=== PATIENT | female | born 1935 | race Caucasian/White ===

== ENCOUNTER 2019-08-08 12:06 | Inpatient (IN) ==
[2019-08-08] MEDS ORDERED: SODIUM CHLORIDE 0.9% 500 ML IV STA (12:57)
[2019-08-08 13:50] LABS: Apearance,Urine CLEAR (Clear); Bacteria,Urine Occasional /HPF (Few); Bilirubin,Urine Negative (Negative); Blood, Urine Negative (Negative); Glucose,Urine (UA) Negative (Negative); Ketones,Urine Negative (Negative); Nitrite,Urine Negative (Negative); Protein,Urine Negative; RBC,Urine 1 /HPF (0-4); Squamous Epithelial Cell,Urine Occasional /HPF (0-10); Urine Color Yellow (Yellow); Urine Specific Gravity 1.011 (1.001-1.035); Urine Urobilinogen < 2.0 EU/DL (0.2-1.0); WBC,Urine <1 /HPF (0-6)
[2019-08-08] MEDS ORDERED: guaiFENesin/DM ER 600-30 MG TABLET PO PRN (14:06)
[2019-08-08] MEDS ORDERED: ONDANSETRON 4 MG/2 ML VIAL IV PRN (14:06)
[2019-08-08 14:28] LABS: Basophils % 0.9 % (0.0-0.8); Eosinophils % 0.3 % (0.00-10.9); Hemoglobin 12.6 GM/DL (12.0-16.0); Immature Granulocytes % 0.3 %; Immature Granulocytes Absolute 0.01 #; Lymphocytes % 30.5 % (21.3-54.2); Mean Corpuscular Volume 82.9 FL (87-102); Mean Platelet Volume 10.8 FL (9.6-12.0); Monocytes % 15.1 % (1.7-12.7); Neutrophils % 52.9 % (38.7-73.9); Platelet Count 223 T/CUMM (130-400); Red Blood Count 4.34 MC/CUMM (3.8-5.5); Red Cell Distribution Width 12.4 % (9.3-17.3); White Blood Count 3.3 T/CUMM (4-12)
[2019-08-08 14:45] LABS: Alanine Aminotransferase 21 U/L (13-56); Albumin 3.5 G/DL (3.4-5.0); Alkaline Phosphatase 73 U/L (45-117); Aspartate Amino Transferase 30 U/L (0-37); Bilirubin,Total < 0.39 MG/DL (0.2-1.0); Blood Urea Nitrogen 8 MG/DL (7-18); Calcium 8.1 MG/DL (8.5-10.1); Estimated Glom Filtration Rate 59 ML/MIN; Glucose 104 MG/DL (74-106); Osmolality,Calculated 237.3 MOS/KG (273-304); Total Protein 7.6 G/DL (6.4-8.3)
[2019-08-08] MEDS ORDERED: ENOXAPARIN 40 MG/0.4 ML SYRINGE SUBCUT SCH (15:00)
[2019-08-08] MEDS: SODIUM CHLORIDE 0.9% 1,000 ML IV SCH ×2 (16:40→23:28)
[2019-08-09 05:38] LABS: Basophils % 1.1 % (0.0-0.8); Eosinophils % 1.1 % (0.00-10.9); Hemoglobin 11.6 GM/DL (12.0-16.0); Immature Granulocytes % 0.3 %; Immature Granulocytes Absolute 0.01 #; Lymphocytes # 1.8 10*3/uL (1.4-4.0); Lymphocytes % 48.8 % (21.3-54.2); Mean Corpuscular HGB Conc 34.1 GM/DL (32-36); Mean Corpuscular Volume 84.4 FL (87-102); Mean Platelet Volume 10.4 FL (9.6-12.0); Monocytes % 16.1 % (1.7-12.7); Neutrophils % 32.6 % (38.7-73.9); Platelet Count 188 T/CUMM (130-400); Red Blood Count 4.03 MC/CUMM (3.8-5.5); Red Cell Distribution Width 12.5 % (9.3-17.3); White Blood Count 3.7 T/CUMM (4-12)
[2019-08-09 05:56] LABS: Alanine Aminotransferase 19 U/L (13-56); Albumin 3.1 G/DL (3.4-5.0); Alkaline Phosphatase 66 U/L (45-117); Aspartate Amino Transferase 30 U/L (0-37); Bilirubin,Total < 0.39 MG/DL (0.2-1.0); Blood Urea Nitrogen 8 MG/DL (7-18); Calcium 7.8 MG/DL (8.5-10.1); Estimated Glom Filtration Rate 60 ML/MIN; Glucose 80 MG/DL (74-106); HDL Cholesterol 34 MG/DL (40-60); Osmolality,Calculated 256.8 MOS/KG (273-304); Risk Ratio 5.15; Total Protein 6.5 G/DL (6.4-8.3); Triglycerides 165 MG/DL (2-150)
[2019-08-09 06:07] LABS: Lymphocytes 45 % (20-55); Segmented Neutrophils 43 % (50-85); Total Cells Counted 100
[2019-08-09 06:09] LABS: Platelet Estimate Increased; Polychromasia Slight
[2019-08-09] MEDS: SODIUM CHLORIDE 0.9% 1,000 ML IV SCH (07:54)
[2019-08-09] MEDS ORDERED: SERTRALINE 25 MG TABLET PO SCH (09:00)
[2019-08-09] MEDS ORDERED: lisinopriL 20 MG TABLET PO SCH (09:00)
[2019-08-09] MEDS ORDERED: POTASSIUM CHLORIDE 20 MEQ TABLET PO SCH (09:00)
[2019-08-09] MEDS ORDERED: PANTOPRAZOLE 40 MG TABLET PO SCH (09:00)
[2019-08-09] MEDS ORDERED: METOPROLOL TARTRATE 100 MG TABLET PO SCH (09:00)
[2019-08-09 12:30] VITALS: BP 153/65
[2019-08-10] MEDS ORDERED: POTASSIUM CHLORIDE 20 MEQ TABLET PO SCH (09:00)
== END 2019-08-09 15:30 | disposition home or self-care (01) | DRG 641 ==
LOC: N.ED 12:06 → SUATTDRO 14:07 → N.EDINP 14:07 → N.5E 15:50
PROVIDERS: ADMIT Internal Medicine Nephrology; ATTEND Internal Medicine

== ENCOUNTER 2019-10-09 17:05 | Inpatient (IN) ==
[2019-10-09] MEDS ORDERED: METOPROLOL TARTRATE 5 MG/5 ML VIAL IV STA (17:35)
[2019-10-09] MEDS ORDERED: ASPIRIN CHEW 81 MG TABLET PO STA (17:36)
[2019-10-09 17:42] LABS: Basophils # 0.1 10*3/uL (0.0-0.2); Basophils % 0.7 % (0.0-0.8); Eosinophils # 0.2 10*3/uL (0.0-0.87); Eosinophils % 1.9 % (0.00-10.9); Hematocrit 38.6 VOL% (35.7-47.0); Hemoglobin 12.4 GM/DL (12.0-16.0); Immature Granulocytes % 0.3 %; Immature Granulocytes Absolute 0.03 #; Lymphocytes # 3.1 10*3/uL (1.4-4.0); Lymphocytes % 28.2 % (21.3-54.2); Mean Corpuscular HGB Conc 32.1 GM/DL (32-36); Mean Corpuscular Volume 89.4 FL (87-102); Mean Platelet Volume 10.5 FL (9.6-12.0); Monocytes % 7.4 % (1.7-12.7); Neutrophils % 61.5 % (38.7-73.9); Platelet Count 250 T/CUMM (130-400); Red Blood Count 4.32 MC/CUMM (3.8-5.5)
[2019-10-09 17:52] LABS: INR 0.9; Partial Thromboplastin Time 29.2 SECS (20.8-36.0)
[2019-10-09 18:20] LABS: Alanine Aminotransferase 17 U/L (13-56); Albumin 3.8 G/DL (3.4-5.0); Alkaline Phosphatase 93 U/L (45-117); Aspartate Amino Transferase 13 U/L (0-37); Blood Urea Nitrogen 12 MG/DL (7-18); Calcium 9.2 MG/DL (8.5-10.1); Estimated Glom Filtration Rate 58 ML/MIN; Glucose 148 MG/DL (74-106); Troponin I < 0.015 NG/ML (0.00-0.045)
[2019-10-09] MEDS ORDERED: LABETALOL 20 MG/4 ML SYRINGE IV PRN (19:26)
[2019-10-09] MEDS ORDERED: ONDANSETRON 4 MG/2 ML VIAL IV PRN (19:26)
[2019-10-09] MEDS ORDERED: ACETAMINOPHEN 325 MG TABLET PO PRN (19:26)
[2019-10-09] MEDS ORDERED: HEPARIN DRIP 25,000 UNITS/500 ML PREMIX IV SCH (19:30)
[2019-10-09] MEDS ORDERED: SODIUM CHLORIDE 0.9% 1,000 ML IV SCH (19:30)
[2019-10-09] MEDS ORDERED: FLUTICASONE 50 MCG NASAL SPRAY 16 GM BOTTLE BOTH NARES PRN (19:37)
[2019-10-09] MEDS ORDERED: BUDESONIDE/FORMOTEROL 160-4.5 INHALER 6 GM INH PRN (19:37)
[2019-10-09 20:01] LABS: Risk Ratio 5.68; VLDL CHOLESTEROL 95.6 MG/DL
[2019-10-09] MEDS: SODIUM CHLORIDE 0.9% 1,000 ML IV SCH (22:32)
[2019-10-09] MEDS: SERTRALINE 25 MG TABLET PO SCH (22:33)
[2019-10-09] MEDS: lisinopriL 20 MG TABLET PO SCH (22:33)
[2019-10-09] MEDS: MEMANTINE 5 MG TABLET PO SCH (22:33)
[2019-10-09] MEDS: ROSUVASTATIN 20 MG TABLET PO SCH (22:33)
[2019-10-09] MEDS: PANTOPRAZOLE 40 MG TABLET PO SCH (22:33)
[2019-10-10 01:26] LABS: Barbiturates Screen,Urine Negative (Negative); Benzodiazepines Screen,Urine Negative (Negative); Cannabinoid Screen,Urine Negative (Negative); Opiate Screen,Urine Negative (Negative); Phencyclidine Screen,Urine Negative (Negative)
[2019-10-10 01:41] LABS: Basophils # 0.1 10*3/uL (0.0-0.2); Basophils % 0.7 % (0.0-0.8); Calcium 8.8 MG/DL (8.5-10.1); Eosinophils # 0.2 10*3/uL (0.0-0.87); Eosinophils % 1.5 % (0.00-10.9); Hematocrit 33.5 VOL% (35.7-47.0); Hemoglobin 10.8 GM/DL (12.0-16.0); Immature Granulocytes % 0.3 %; Immature Granulocytes Absolute 0.04 #; Lymphocytes # 3.7 10*3/uL (1.4-4.0); Lymphocytes % 32.1 % (21.3-54.2); Mean Corpuscular HGB Conc 32.2 GM/DL (32-36); Mean Corpuscular Volume 89.6 FL (87-102); Monocytes % 7.5 % (1.7-12.7); Neutrophils % 57.9 % (38.7-73.9); Platelet Count 218 T/CUMM (130-400); Red Blood Count 3.74 MC/CUMM (3.8-5.5); Red Cell Distribution Width 12.9 % (9.3-17.3); White Blood Count 11.7 T/CUMM (4-12)
[2019-10-10] MEDS ORDERED: HEPARIN 5,000 UNIT/1 ML VIAL IV PRN ×2 (02:06→14:27)
[2019-10-10] MEDS: POTASSIUM CHLORIDE 20 MEQ TABLET PO PRN (05:55)
[2019-10-10] MEDS: SODIUM CHLORIDE 0.9% 1,000 ML IV SCH ×2 (05:56→16:02)
[2019-10-10] MEDS: CHOLESTYRAMINE/ASPARTAME 4 GM PACK PO SCH ×2 (07:45→16:48)
[2019-10-10] MEDS ORDERED: amLODIPine 2.5 MG TABLET PO SCH (09:00)
[2019-10-10] MEDS: POTASSIUM CHLORIDE 20 MEQ TABLET PO SCH ×2 (09:04→11:40)
[2019-10-10] MEDS: METOPROLOL TARTRATE 100 MG TABLET PO SCH (09:04)
[2019-10-10] MEDS: ASPIRIN EC 81 MG TABLET PO SCH (09:04)
[2019-10-10] MEDS: MEMANTINE 5 MG TABLET PO SCH ×2 (09:04→21:05)
[2019-10-10] MEDS: lisinopriL 20 MG TABLET PO SCH ×2 (09:04→21:05)
[2019-10-10] MEDS ORDERED: amLODIPine 10 MG TABLET PO SCH (10:11)
[2019-10-10] MEDS ORDERED: HEPARIN 5,000 UNIT/1 ML VIAL IV ONE (14:31)
[2019-10-10] MEDS: HEPARIN DRIP 25,000 UNITS/500 ML PREMIX IV SCH (14:45)
[2019-10-10] MEDS ORDERED: DEXTROSE 50% 25 GM/50 ML VIAL IV PRN (15:04)
[2019-10-10] MEDS ORDERED: GLUCAGON 1 MG VIAL IM PRN (15:04)
[2019-10-10] MEDS: hydrALAZINE 25 MG TABLET PO SCH ×2 (15:49→21:05)
[2019-10-10] MEDS: FENOFIBRATE 160 MG TABLET PO SCH (15:49)
[2019-10-10] MEDS: INSULIN REGULAR 100 UNIT/ML SUBCUT SCH (15:55)
[2019-10-10] MEDS ORDERED: MAGNESIUM SULF RIDER 4 GM in PREMIX 1 EACH IV ONE (16:18)
[2019-10-10 16:43] LABS: Apearance,Urine CLEAR (Clear); Bilirubin,Urine Negative (Negative); Blood, Urine Negative (Negative); Glucose,Urine (UA) Negative (Negative); Ketones,Urine Negative (Negative); Nitrite,Urine Negative (Negative); Protein,Urine Negative; RBC,Urine 1 /HPF (0-4); Urine Color Colorless (Yellow); Urine Specific Gravity 1.009 (1.001-1.035); Urine Urobilinogen < 2.0 EU/DL (0.2-1.0); WBC,Urine <1 /HPF (0-6)
[2019-10-10] MEDS ORDERED: CLOPIDOGREL 75 MG TABLET PO SCH (17:00)
[2019-10-10] MEDS: ROSUVASTATIN 20 MG TABLET PO SCH (21:05)
[2019-10-10] MEDS: PANTOPRAZOLE 40 MG TABLET PO SCH (21:05)
[2019-10-10] MEDS: SERTRALINE 25 MG TABLET PO SCH (21:05)
[2019-10-11] MEDS: HEPARIN DRIP 25,000 UNITS/500 ML PREMIX IV SCH ×4 (00:19→20:43)
[2019-10-11] MEDS: INSULIN REGULAR 100 UNIT/ML SUBCUT SCH ×5 (01:47→23:58)
[2019-10-11 04:30] LABS: Calcium 8.1 MG/DL (8.5-10.1); Osmolality,Calculated 271.8 MOS/KG (273-304)
[2019-10-11] MEDS ORDERED: POTASSIUM CHLORIDE 20 MEQ TABLET PO ONE (07:42)
[2019-10-11] MEDS: MEMANTINE 5 MG TABLET PO SCH ×2 (08:33→20:37)
[2019-10-11] MEDS: hydrALAZINE 25 MG TABLET PO SCH ×3 (08:34→20:35)
[2019-10-11] MEDS: METOPROLOL TARTRATE 100 MG TABLET PO SCH (08:35)
[2019-10-11] MEDS: FENOFIBRATE 160 MG TABLET PO SCH (08:35)
[2019-10-11] MEDS: lisinopriL 20 MG TABLET PO SCH ×2 (08:35→20:36)
[2019-10-11] MEDS: ASPIRIN EC 81 MG TABLET PO SCH (08:36)
[2019-10-11] MEDS: CHOLESTYRAMINE/ASPARTAME 4 GM PACK PO SCH ×2 (10:19→17:35)
[2019-10-11] MEDS ORDERED: POTASSIUM CHLORIDE RIDER 10 MEQ in PREMIX 1 EACH IV PRN (15:57)
[2019-10-11] MEDS ORDERED: MAGNESIUM SULF RIDER 2 GM in PREMIX 1 EACH IV PRN (15:57)
[2019-10-11] MEDS: ROSUVASTATIN 20 MG TABLET PO SCH (20:35)
[2019-10-11] MEDS: SERTRALINE 25 MG TABLET PO SCH (20:36)
[2019-10-11] MEDS: POTASSIUM CHLORIDE 20 MEQ TABLET PO PRN (20:36)
[2019-10-11] MEDS: carvediloL 12.5 MG TABLET PO SCH (20:37)
[2019-10-11] MEDS: PANTOPRAZOLE 40 MG TABLET PO SCH (20:37)
[2019-10-12 05:50] LABS: Calcium 8.7 MG/DL (8.5-10.1); Osmolality,Calculated 269.2 MOS/KG (273-304)
[2019-10-12] MEDS ORDERED: TISSUE ADHESIVE 1 EACH APPLICATOR TOP ONE (06:53)
[2019-10-12] MEDS ORDERED: LIDOCAINE 1% 20 ML VIAL ONE (06:53)
[2019-10-12] MEDS ORDERED: LIDOCAINE 1%/EPI INJ 20 ML VIAL ONE (07:07)
[2019-10-12] MEDS: INSULIN REGULAR 100 UNIT/ML SUBCUT SCH ×3 (08:32→17:58)
[2019-10-12] MEDS: hydrALAZINE 25 MG TABLET PO SCH (08:45)
[2019-10-12] MEDS: lisinopriL 20 MG TABLET PO SCH (08:46)
[2019-10-12] MEDS: carvediloL 12.5 MG TABLET PO SCH (08:46)
[2019-10-12] MEDS: MEMANTINE 5 MG TABLET PO SCH (08:47)
[2019-10-12] MEDS: FENOFIBRATE 160 MG TABLET PO SCH (08:47)
[2019-10-12] MEDS: ASPIRIN EC 81 MG TABLET PO SCH (08:47)
[2019-10-12] MEDS: CHOLESTYRAMINE/ASPARTAME 4 GM PACK PO SCH ×2 (08:48→17:55)
[2019-10-12] MEDS ORDERED: propofoL 200 MG/20 ML VIAL IV ONE (10:53)
[2019-10-12] MEDS ORDERED: LIDOCAINE 2% 5 ML VIAL ONE (10:53)
[2019-10-12] MEDS ORDERED: CLOPIDOGREL 75 MG TABLET PO SCH (14:47)
[2019-10-13] MEDS: carvediloL 12.5 MG TABLET PO SCH ×3 (01:03→20:20)
[2019-10-13] MEDS: INSULIN REGULAR 100 UNIT/ML SUBCUT SCH ×5 (01:03→23:51)
[2019-10-13] MEDS: ROSUVASTATIN 20 MG TABLET PO SCH ×2 (01:03→20:20)
[2019-10-13] MEDS: MEMANTINE 5 MG TABLET PO SCH ×3 (01:04→20:20)
[2019-10-13] MEDS: PANTOPRAZOLE 40 MG TABLET PO SCH ×2 (01:04→20:20)
[2019-10-13] MEDS: lisinopriL 20 MG TABLET PO SCH ×3 (01:04→20:20)
[2019-10-13] MEDS: SERTRALINE 25 MG TABLET PO SCH ×2 (01:05→20:20)
[2019-10-13] MEDS: CHOLESTYRAMINE/ASPARTAME 4 GM PACK PO SCH ×2 (08:16→17:22)
[2019-10-13] MEDS ORDERED: HEPARIN DRIP 25,000 UNITS/500 ML PREMIX IV SCH (09:00)
[2019-10-13 09:45] LABS: Basophils # 0.1 10*3/uL (0.0-0.2); Basophils % 0.4 % (0.0-0.8); Eosinophils # 0.1 10*3/uL (0.0-0.87); Eosinophils % 0.5 % (0.00-10.9); Hematocrit 36.5 VOL% (35.7-47.0); Hemoglobin 11.9 GM/DL (12.0-16.0); Immature Granulocytes % 0.3 %; Immature Granulocytes Absolute 0.04 #; Lymphocytes # 1.9 10*3/uL (1.4-4.0); Lymphocytes % 14.6 % (21.3-54.2); Mean Corpuscular HGB Conc 32.6 GM/DL (32-36); Mean Corpuscular Volume 87.5 FL (87-102); Mean Platelet Volume 10.9 FL (9.6-12.0); Monocytes % 8.4 % (1.7-12.7); Neutrophils % 75.8 % (38.7-73.9); Platelet Count 234 T/CUMM (130-400); Red Blood Count 4.17 MC/CUMM (3.8-5.5); Red Cell Distribution Width 13.2 % (9.3-17.3); White Blood Count 12.8 T/CUMM (4-12)
[2019-10-13] MEDS: APIXABAN 5 MG TABLET PO SCH ×2 (11:10→20:20)
[2019-10-13] MEDS: FENOFIBRATE 160 MG TABLET PO SCH (11:12)
[2019-10-13] MEDS: ASPIRIN EC 81 MG TABLET PO SCH (11:13)
[2019-10-14] MEDS: INSULIN REGULAR 100 UNIT/ML SUBCUT SCH ×2 (08:04→12:21)
[2019-10-14] MEDS: FENOFIBRATE 160 MG TABLET PO SCH (08:44)
[2019-10-14] MEDS: APIXABAN 5 MG TABLET PO SCH (08:44)
[2019-10-14] MEDS: CHOLESTYRAMINE/ASPARTAME 4 GM PACK PO SCH (08:44)
[2019-10-14] MEDS: ASPIRIN EC 81 MG TABLET PO SCH (08:44)
[2019-10-14] MEDS: MEMANTINE 5 MG TABLET PO SCH (08:44)
[2019-10-14] MEDS: lisinopriL 20 MG TABLET PO SCH (08:44)
[2019-10-14] MEDS: carvediloL 12.5 MG TABLET PO SCH (08:44)
[2019-10-14 11:51] VITALS: BP 142/62
== END 2019-10-14 13:59 | disposition home or self-care (01) | DRG 41 ==
LOC: N.ED 17:05 → N.EDINP 17:05 → N.4E 21:35 → SUATTDRO 10-10 15:16
PROVIDERS: ADMIT Internal Medicine; ATTEND Internal Medicine

== ENCOUNTER 2021-05-28 14:39 | Inpatient (IN) ==
[2021-05-28 16:31] LABS: Basophils % 0.4 % (0.0-0.8); Eosinophils # 0.1 10*3/uL (0.0-0.87); Eosinophils % 1.1 % (0.00-10.9); Hematocrit 32.5 VOL% (35.7-47.0); Hemoglobin 10.8 GM/DL (12.0-16.0); Immature Granulocytes % 0.4 %; Immature Granulocytes Absolute 0.04 #; Lymphocytes # 1.8 10*3/uL (1.4-4.0); Lymphocytes % 17.5 % (21.3-54.2); Mean Corpuscular HGB Conc 33.2 GM/DL (32-36); Mean Corpuscular Volume 87.6 FL (87-102); Mean Platelet Volume 12.1 FL (9.6-12.0); Monocytes % 9.5 % (1.7-12.7); Neutrophils % 71.1 % (38.7-73.9); Platelet Count 208 T/CUMM (130-400); Red Blood Count 3.71 MC/CUMM (3.8-5.5); Red Cell Distribution Width 12.3 % (9.3-17.3); White Blood Count 10.5 T/CUMM (4-12)
[2021-05-28 16:46] LABS: Albumin 3.3 G/DL (3.4-5.0); Bilirubin,Total 0.4 MG/DL (0.20-1.00); Calcium 8.5 MG/DL (8.5-10.1); Osmolality,Calculated 248.6 MOS/KG (273-304); Total Protein 6.2 G/DL (6.4-8.2)
[2021-05-28 17:44] LABS: Bilirubin,Urine Negative (Negative); Blood, Urine Negative (Negative); Glucose,Urine (UA) Negative (Negative); Hyaline Casts,Urine 1 /LPF (0-3); Ketones,Urine Negative (Negative); Mucus,Urine Occasional /LPF (Occasional); Nitrite,Urine Negative (Negative); Protein,Urine Negative; Urine Appearance CLEAR (Clear); Urine Color Yellow (Yellow); Urine Urobilinogen < 2.0 EU/DL (0.2-1.0)
[2021-05-28] MEDS ORDERED: DEXTROSE 50% 25 GM/50 ML VIAL IV PRN (18:02)
[2021-05-28] MEDS ORDERED: ONDANSETRON 4 MG/2 ML VIAL IV PRN (18:02)
[2021-05-28] MEDS ORDERED: ACETAMINOPHEN 325 MG TABLET PO PRN (18:02)
[2021-05-28] MEDS ORDERED: GLUCAGON 1 MG VIAL IM PRN (18:02)
[2021-05-28] MEDS ORDERED: POTASSIUM CHLORIDE 20 MEQ TABLET PO ONE (18:46)
[2021-05-28 18:57] LABS: Thyroid Stimulating Hormone 1.58 uIU/ml (0.358-3.74)
[2021-05-28] MEDS ORDERED: FUROSEMIDE 40 MG/4 ML VIAL IV ONE (19:00)
[2021-05-28] MEDS ORDERED: INFLUENZA VIRUS VACCINE 0.5 ML SYRINGE IM ONE (20:26)
[2021-05-28] MEDS ORDERED: NON-FORMULARY MEDICATION (Lansoprazole 30 mg capsule,delayed release(DR/EC)) PO SCH (21:00)
[2021-05-28] MEDS ORDERED: carvediloL 12.5 MG TABLET PO SCH (21:00)
[2021-05-28] MEDS: MEMANTINE 5 MG TABLET PO SCH (21:06)
[2021-05-28] MEDS: APIXABAN 5 MG TABLET PO SCH (21:06)
[2021-05-28] MEDS: lisinopriL 20 MG TABLET PO SCH (21:07)
[2021-05-28] MEDS: SERTRALINE 25 MG TABLET PO SCH (21:07)
[2021-05-28] MEDS: ROSUVASTATIN 20 MG TABLET PO SCH (21:07)
[2021-05-28] MEDS: BUDESONIDE/FORMOTEROL 160-4.5 INHALER 6 GM INH SCH (21:53)
[2021-05-29 05:10] LABS: Basophils % 0.4 % (0.0-0.8); Eosinophils # 0.2 10*3/uL (0.0-0.87); Eosinophils % 1.9 % (0.00-10.9); Hemoglobin 9.8 GM/DL (12.0-16.0); Immature Granulocytes % 0.4 %; Immature Granulocytes Absolute 0.04 #; Lymphocytes # 2.2 10*3/uL (1.4-4.0); Lymphocytes % 21.9 % (21.3-54.2); Mean Corpuscular HGB Conc 33.8 GM/DL (32-36); Mean Corpuscular Volume 86.1 FL (87-102); Mean Platelet Volume 11.5 FL (9.6-12.0); Monocytes % 9.9 % (1.7-12.7); Neutrophils % 65.5 % (38.7-73.9); Platelet Count 208 T/CUMM (130-400); Red Blood Count 3.37 MC/CUMM (3.8-5.5); Red Cell Distribution Width 12.2 % (9.3-17.3); White Blood Count 10.2 T/CUMM (4-12)
[2021-05-29 05:39] LABS: Calcium 8.4 MG/DL (8.5-10.1); Osmolality,Calculated 249.4 MOS/KG (273-304); Potassium 2.8 MMOL/L (3.5-5.1)
[2021-05-29] MEDS: POTASSIUM CHLORIDE 20 MEQ TABLET PO PRN (06:12)
[2021-05-29] MEDS ORDERED: MAGNESIUM SULF RIDER 4 GM/100 ML PREMIX IV PRN (07:40)
[2021-05-29] MEDS ORDERED: MAGNESIUM SULF RIDER 4 GM/100 ML PREMIX IV ONE (08:03)
[2021-05-29] MEDS: carvediloL 25 MG TABLET PO SCH ×2 (09:58→16:26)
[2021-05-29] MEDS: MEMANTINE 5 MG TABLET PO SCH ×2 (09:58→21:34)
[2021-05-29] MEDS: FENOFIBRATE 160 MG TABLET PO SCH (09:58)
[2021-05-29] MEDS: APIXABAN 5 MG TABLET PO SCH ×2 (09:58→21:35)
[2021-05-29] MEDS: PANTOPRAZOLE 40 MG TABLET PO SCH (09:58)
[2021-05-29] MEDS: OMEGA 3 ACID ETHYL ESTERS 1 GM CAPSULE PO SCH (09:58)
[2021-05-29] MEDS: POTASSIUM CHLORIDE 20 MEQ PACK PO SCH ×2 (09:59→12:04)
[2021-05-29] MEDS: FUROSEMIDE 40 MG/4 ML VIAL IV SCH ×2 (09:59→16:26)
[2021-05-29] MEDS: lisinopriL 20 MG TABLET PO SCH ×2 (10:03→21:35)
[2021-05-29] MEDS: BUDESONIDE/FORMOTEROL 160-4.5 INHALER 6 GM INH SCH ×2 (10:03→21:35)
[2021-05-29] MEDS: ASPIRIN CHEW 81 MG TABLET PO SCH (10:37)
[2021-05-29] MEDS ORDERED: POTASSIUM CHLORIDE 20 MEQ PACK PO SCH (12:00)
[2021-05-29] MEDS ORDERED: POTASSIUM CHLORIDE 20 MEQ TABLET PO ONE (14:53)
[2021-05-29] MEDS: SERTRALINE 25 MG TABLET PO SCH (21:29)
[2021-05-29] MEDS: ROSUVASTATIN 20 MG TABLET PO SCH (21:34)
[2021-05-30 06:27] LABS: Basophils % 0.4 % (0.0-0.8); Eosinophils # 0.2 10*3/uL (0.0-0.87); Eosinophils % 2.1 % (0.00-10.9); Hematocrit 30.6 VOL% (35.7-47.0); Hemoglobin 10.1 GM/DL (12.0-16.0); Immature Granulocytes % 0.2 %; Immature Granulocytes Absolute 0.02 #; Lymphocytes # 2.6 10*3/uL (1.4-4.0); Lymphocytes % 28.5 % (21.3-54.2); Mean Corpuscular Volume 86.9 FL (87-102); Mean Platelet Volume 11.3 FL (9.6-12.0); Monocytes % 12.3 % (1.7-12.7); Neutrophils % 56.5 % (38.7-73.9); Platelet Count 216 T/CUMM (130-400); Red Blood Count 3.52 MC/CUMM (3.8-5.5); Red Cell Distribution Width 12.5 % (9.3-17.3)
[2021-05-30 07:01] LABS: Calcium 8.3 MG/DL (8.5-10.1); Osmolality,Calculated 246.6 MOS/KG (273-304); Potassium 3.3 MMOL/L (3.5-5.1)
[2021-05-30] MEDS: PANTOPRAZOLE 40 MG TABLET PO SCH (09:20)
[2021-05-30] MEDS: POTASSIUM CHLORIDE 20 MEQ TABLET PO SCH ×2 (09:20→21:01)
[2021-05-30] MEDS: ASPIRIN CHEW 81 MG TABLET PO SCH (09:20)
[2021-05-30] MEDS: APIXABAN 5 MG TABLET PO SCH ×2 (09:20→21:02)
[2021-05-30] MEDS: OMEGA 3 ACID ETHYL ESTERS 1 GM CAPSULE PO SCH (09:20)
[2021-05-30] MEDS: FENOFIBRATE 160 MG TABLET PO SCH (09:20)
[2021-05-30] MEDS: MEMANTINE 5 MG TABLET PO SCH ×2 (09:20→21:02)
[2021-05-30] MEDS: FUROSEMIDE 40 MG/4 ML VIAL IV SCH (09:21)
[2021-05-30] MEDS: carvediloL 25 MG TABLET PO SCH ×2 (09:21→17:22)
[2021-05-30] MEDS: lisinopriL 20 MG TABLET PO SCH ×2 (09:21→20:59)
[2021-05-30] MEDS: BUDESONIDE/FORMOTEROL 160-4.5 INHALER 6 GM INH SCH ×2 (09:23→21:04)
[2021-05-30 10:11] LABS: Calcium 8.4 MG/DL (8.5-10.1); Osmolality,Calculated 252.4 MOS/KG (273-304); Potassium 3.3 MMOL/L (3.5-5.1)
[2021-05-30] MEDS ORDERED: SODIUM CHLORIDE 1 GM TABLET PO SCH (11:00)
[2021-05-30] MEDS: SODIUM CHLORIDE 1 GM TABLET PO SCH ×2 (15:25→21:00)
[2021-05-30] MEDS: FUROSEMIDE 20 MG/2 ML VIAL IV SCH (15:29)
[2021-05-30] MEDS: ROSUVASTATIN 20 MG TABLET PO SCH (21:00)
[2021-05-30] MEDS: SERTRALINE 25 MG TABLET PO SCH (21:02)
[2021-05-31] MEDS: FUROSEMIDE 20 MG/2 ML VIAL IV SCH ×2 (08:12→15:11)
[2021-05-31] MEDS: OMEGA 3 ACID ETHYL ESTERS 1 GM CAPSULE PO SCH (08:13)
[2021-05-31] MEDS: DILTIAZEM CD 120 MG CAPSULE PO SCH (08:13)
[2021-05-31] MEDS: APIXABAN 5 MG TABLET PO SCH ×2 (08:13→21:14)
[2021-05-31] MEDS: PANTOPRAZOLE 40 MG TABLET PO SCH (08:13)
[2021-05-31] MEDS: POTASSIUM CHLORIDE 20 MEQ TABLET PO SCH ×2 (08:13→21:14)
[2021-05-31] MEDS: carvediloL 25 MG TABLET PO SCH ×2 (08:13→16:11)
[2021-05-31] MEDS: SODIUM CHLORIDE 1 GM TABLET PO SCH ×3 (08:13→21:13)
[2021-05-31] MEDS: lisinopriL 20 MG TABLET PO SCH ×2 (08:13→21:13)
[2021-05-31] MEDS: FENOFIBRATE 160 MG TABLET PO SCH (08:14)
[2021-05-31] MEDS: BUDESONIDE/FORMOTEROL 160-4.5 INHALER 6 GM INH SCH ×2 (08:14→21:15)
[2021-05-31] MEDS: MEMANTINE 5 MG TABLET PO SCH ×2 (08:14→21:15)
[2021-05-31 08:54] LABS: Osmolality,Calculated 253.2 MOS/KG (273-304); Potassium 3.3 MMOL/L (3.5-5.1)
[2021-05-31] MEDS: POTASSIUM CHLORIDE 20 MEQ TABLET PO PRN ×2 (10:15→12:15)
[2021-05-31] MEDS ORDERED: SODIUM CHLORIDE 1 GM TABLET PO ONE (11:00)
[2021-05-31] MEDS ORDERED: SODIUM CHLORIDE 1 GM TABLET PO SCH (13:00)
[2021-05-31] MEDS ORDERED: DOCUSATE SODIUM 100 MG CAPSULE PO ONE (15:00)
[2021-05-31 16:27] LABS: Calcium 8.8 MG/DL (8.5-10.1); Osmolality,Calculated 259.1 MOS/KG (273-304); Potassium 3.7 MMOL/L (3.5-5.1)
[2021-05-31] MEDS: ROSUVASTATIN 20 MG TABLET PO SCH (21:13)
[2021-05-31] MEDS: SERTRALINE 25 MG TABLET PO SCH (21:15)
[2021-06-01 05:56] LABS: Calcium 8.9 MG/DL (8.5-10.1); Osmolality,Calculated 264.7 MOS/KG (273-304); Potassium 3.8 MMOL/L (3.5-5.1)
[2021-06-01] MEDS: MAGNESIUM SULF RIDER 2 GM/50 ML PREMIX IV PRN ×2 (06:53→09:39)
[2021-06-01] MEDS ORDERED: MAGNESIUM SULF RIDER 4 GM/100 ML PREMIX IV ONE (07:43)
[2021-06-01] MEDS: POTASSIUM CHLORIDE 20 MEQ TABLET PO SCH (09:29)
[2021-06-01] MEDS: OMEGA 3 ACID ETHYL ESTERS 1 GM CAPSULE PO SCH (09:29)
[2021-06-01] MEDS: MEMANTINE 5 MG TABLET PO SCH (09:29)
[2021-06-01] MEDS: carvediloL 25 MG TABLET PO SCH (09:29)
[2021-06-01] MEDS: SODIUM CHLORIDE 1 GM TABLET PO SCH (09:29)
[2021-06-01] MEDS: FENOFIBRATE 160 MG TABLET PO SCH (09:29)
[2021-06-01] MEDS: lisinopriL 20 MG TABLET PO SCH (09:30)
[2021-06-01] MEDS: PANTOPRAZOLE 40 MG TABLET PO SCH (09:30)
[2021-06-01] MEDS: APIXABAN 5 MG TABLET PO SCH (09:30)
[2021-06-01] MEDS: DILTIAZEM CD 120 MG CAPSULE PO SCH (09:30)
[2021-06-01] MEDS: BUDESONIDE/FORMOTEROL 160-4.5 INHALER 6 GM INH SCH (09:30)
[2021-06-01] MEDS: FUROSEMIDE 20 MG/2 ML VIAL IV SCH (10:23)
[2021-06-01 10:53] VITALS: BP 137/87
[2021-06-01] MEDS ORDERED: DOCUSATE/SENNA 50-8.6 MG TABLET PO SCH (11:00)
== END 2021-06-01 12:33 | disposition home health service (06) | DRG 291 ==
LOC: N.ED 14:39 → N.EDINP 14:39 → N.5E 20:00
PROVIDERS: ADMIT Internal Medicine; ATTEND Internal Medicine